=== PATIENT | female | born 1990 | race Caucasian/White ===

== ENCOUNTER → 2021-05-24 | Outpatient (CLI) | payer OTHER ==
[2021-05-27 01:07] LABS: CHLAMYDIA TRACHOMATIS, NAA Negative (Negative)
== END | disposition home or self-care (01) ==
LOC: LAB SHORT 20:08
PROVIDERS: Family Medicine
DX: J02.9 Acute pharyngitis, unspecified (principal); N89.8 Other specified noninflammatory disorders of vagina
CPT/HCPCS: 87081; 87491; 87591

== ENCOUNTER 2023-05-11 18:12 | Inpatient (IN) | payer OTHER ==
[~2023-05-11] VITALS: Ht 160 cm; Wt 97.2 kg
[2023-05-11] VITALS (9 sets, daily range): BP systolic 126–139; BP diastolic 61–89
[2023-05-11 18:55] LABS: BASOPHILS ABSOLUTE AUTO 0.03 K/mm3 (0.00-0.23); BASOPHILS PERCENT AUTO 0 % (0-2); EOSINOPHILS ABSOLUTE AUTO 0.08 K/mm3 (0.00-0.68); EOSINOPHILS PERCENT AUTO 1 % (0-6); Hematocrit 34.6 % (33.0-51.0); Hemoglobin 11.5 g/dL (11.5-16.0); IMMATURE GRAN PERCENT AUTO 1 % (0-1); LYMPHOCYTES ABSOLUTE AUTO 2.16 K/mm3 (0.84-5.20); LYMPHOCYTES PERCENT AUTO 19 % (21-46); MONOCYTES ABSOLUTE AUTO 0.74 K/mm3 (0.16-1.47); MONOCYTES PERCENT AUTO 7 % (4-13); Mean Corpuscular HGB 28.8 pg (26.0-34.0); Mean Corpuscular HGB Conc 33.2 g/dL (31.5-36.5); Mean Corpuscular Volume 87 fL (80-100); Mean Platelet Volume 11.7 fL (9.1-12.4); NEUTROPHILS ABSOLUTE AUTO 8.19 K/mm3 (1.96-9.15); NEUTROPHILS PERCENT AUTO 73 % (41-73); Platelet Count 197 K/mm3 (150-400); RDW Coefficient Variation 14.6 % (11.7-14.2); RDW Standard Deviation 46.4 fL (35.1-46.3); Red Blood Cell Count 3.99 M/mm3 (3.80-5.20)
[2023-05-11] MEDS ORDERED: FAMO20 (19:33)
[2023-05-12 00:11] VITALS: BP 122/58
[2023-05-12 03:21] VITALS: BP 122/58
[2023-05-12 07:36] VITALS: BP 101/54
[2023-05-12 09:18] LABS: Hematocrit 33.3 % (33.0-51.0); Hemoglobin 11.1 g/dL (11.5-16.0); Mean Corpuscular HGB 28.7 pg (26.0-34.0); Mean Corpuscular HGB Conc 33.3 g/dL (31.5-36.5); Mean Corpuscular Volume 86 fL (80-100); Mean Platelet Volume 11.4 fL (9.1-12.4); Platelet Count 179 K/mm3 (150-400); RDW Coefficient Variation 14.6 % (11.7-14.2); Red Blood Cell Count 3.87 M/mm3 (3.80-5.20); White Blood Cell Count 15.54 K/mm3 (4.00-11.30)
[2023-05-12 11:07] VITALS: BP 116/58
[2023-05-12 15:29] VITALS: BP 134/72
[2023-05-12 19:18] VITALS: BP 120/68
--- NOTE | 2023-05-12 19:32 | NUR ---
pt declined fundal massage with initial assessment. RN inquired about patient's bleeding. pt stated "it is fine, very light."
--- NOTE | 2023-05-12 23:38 | NUR ---
PT D/C'D HOME, FOB ACCOMPANIED PT TO CAR. PT AWARE OF [facility] APPOINTMENT AND TO CALL [facility] AND SEALER IF SHE HAS ANY PP/NB QUESTIONS. PT VERBALIZES UNDERSTANDING OF ALL D/C INSTRUCTIONS AND DECLINED TO HEAR FURTHER DC INSTRUCTIONS FROM NIGHT NURSE.
== END 2023-05-12 23:30 | disposition home or self-care (01) | DRG 807 ==
LOC: OBS 18:12 → BC 18:13 → OBS 18:29 → BC 18:31
PROVIDERS: ADMIT Advanced Practice Midwife
PROC: 10E0XZZ Delivery of Products of Conception, External Approach (ICD-10-PCS; principal; 2023-05-11)
PROC: 4A1HXCZ Monitoring of Products of Conception, Cardiac Rate, External Approach (ICD-10-PCS; 2023-05-11)
DX: O48.0 Post-term pregnancy (principal); Z37.0 Single live birth; O42.02 Full-term premature rupture of membranes, onset of labor within 24 hours of rupture; O99.214 Obesity complicating childbirth; O99.824 Streptococcus B carrier state complicating childbirth; Z3A.40 40 weeks gestation of pregnancy; O69.1XX0 Labor and delivery complicated by cord around neck, with compression, not applicable or unspecified; O76 Abnormality in fetal heart rate and rhythm complicating labor and delivery
CPT/HCPCS: 36415; 85025; 85027; 86850; 86900; 86901; A9270; J0290; J1885; J2590; J3010

== ENCOUNTER 2023-09-27 13:53 | Emergency (ER) | payer OTHER ==
[~2023-09-27] VITALS: Ht 160 cm; Wt 90.7 kg
[~2023-09-27 13:53] MED LIST: FAMO20
[2023-09-27] MEDS ORDERED: MULVITA PO (14:30)
[2023-09-27] MEDS ORDERED: VITAMIN D5000 UNIT PO (14:30)
[2023-09-27 17:14] VITALS: BP 128/94
== END 2023-09-27 18:17 | disposition home or self-care (01) ==
LOC: ER 13:53
DX: M25.511 Pain in right shoulder (principal); M25.512 Pain in left shoulder; R51.9 Headache, unspecified; M54.2 Cervicalgia; V43.53XA Car driver injured in collision with pick-up truck in traffic accident, initial encounter
CPT/HCPCS: 70450; 99284-25